=== PATIENT | female | born 1950 | race Caucasian/White ===

== ENCOUNTER 2017-08-06 11:13 | Outpatient (CLI) ==
--- NOTE | 2017-08-06 12:25 | DI ---
EXAM: Radiographs, chest and right rib HISTORY: Right chest wall pain. COMPARISON: Chest radiograph 02/07/2012. TECHNIQUE: Five views. FINDINGS: Heart size is mildly enlarged. There is no vascular congestion. The lungs are clear with out pleural effusion or pneumothorax. Question old right anterior fifth rib fracture. No acute righ t rib fracture or other acute osseous abnormality is identified. IMPRESSION: No acute abnormality of the chest.
== END 2017-08-06 11:14 | disposition home or self-care (01) ==
LOC: RAD 11:13
PROVIDERS: ATTEND Family Medicine
DX: R07.89 Other chest pain (principal); W19.XXXA Unspecified fall, initial encounter

== ENCOUNTER 2017-11-11 07:10 | Day surgery (SDC) ==
[2017-11-11] MEDS ORDERED: LIDOCAINE 1% 20 ML MDV ID STA (07:36)
[2017-11-11] MEDS ORDERED: LIDOCAINE HCL 2% LUER-JET ONE (08:00)
[2017-11-11] MEDS ORDERED: VERSED ONE (08:00)
[2017-11-11] MEDS ORDERED: DIPRIVAN 20 ML VIAL IVP ONE (08:00)
[2017-11-11] MEDS ORDERED: ZOFRAN 4 MG/2 ML IVP STA (09:01)
--- NOTE | 2017-11-12 09:02 | OP ---
INDICATIONS FOR PROCEDURE: 67-year-old female presents for endoscopy and colonoscopy. She has intermittent dysphagia to solid foods. She is also scheduled for screening colonoscopy with a family history of colon cancer involving a Grandmother. MEDICATIONS: SEE ANESTHESIA NOTES. PROCEDURE: 1. ENDOSCOPY, ESOPHAGEAL BIOPSY, BHUTANESE DILATATION 2. COLONOSCOPY WITH SNARE POLYPECTOMY REPORT: The risks, benefits, alternatives and limitations were discussed in detail with the patient. Informed consent was obtained. After adequate sedation was achieved, the video endoscope was introduced in the posterior pharynx and esophagus under direct vision and easily advanced down to the second portion of the duodenum. I then slowly withdrew. The duodenal mucosa appeared unremarkable as did the duodenal bulb. The antrum and body were relatively unremarkable. The scope was retroflexed to look at the cardia and fundus which was unremarkable. There was a hiatal hernia present. The scope was retroflexed and withdrawn back into the esophagus which was unremarkable. There was about a 3 cm hiatal hernia. At the GE junction there was a circumferential stricture causing mild luminal narrowing. I biopsied the GE junction for histological review. The remaining esophagus appeared unremarkable. I then advanced the scope back down the gastric lumen and placed a guidewire and withdrew the scope. Over the guidewire, I easily advanced a [address] [place] dilator. The patient tolerated the procedure well with stable vital signs and pulse oximetry throughout. The patient's bed was turned. A digital rectal exam revealed good tone no masses. The colonoscope was introduced into the rectum and was advanced under direct visual guidance to the cecum. The cecum was identified by the appendiceal orifice and IC valve. I then slowly withdrew the scope in a circumferential manner examining the mucosa quite carefully. I looked on the proximal and distal side of folds and flexures as best as possible. I was able to retroflex the scope in the right colon as well as the left colon. The colonic mucosa was unremarkable its entire length except for a small 5 to 6 mm sessile polyp in the distal transverse colon. I removed this by snare technique. The polyp was collected. In the sigmoid there was scattered small mouth diverticula. No other abnormalities noted including on retroflex view of the anal rayo. The prep was good. The withdrawal time was 8 minutes and 57 seconds. The patient tolerated the procedure well with stable vital signs and pulse oximetry throughout. IMPRESSION: 1. 3 cm hiatal hernia 2. Distal esophageal strictured dilated as above 3. Small colon polyp removed 4. Sigmoid diverticulosis RECOMMENDATIONS: 1. Strict reflux precautions. 2. I advised her to make sure she cuts and chews her food well. 3. Await esophageal biopsy results to confirm benign nature. 4. Await colon polyp pathology. If there are adenomatous changes, I recommend a surveillance colonoscopy examination again in 5 years. If there is hyperplastic changes then I suggest a screening examination again in 10 years, sooner if there are any signs or symptoms to indicate otherwise. 5. High fiber diet. 6. Will see her back in the office as needed. CC: DR. NAA LEO
[2017-11-12 15:26] VITALS: BP 128/64; TEMP 98.6
== END 2017-11-11 09:39 | disposition home or self-care (01) ==
LOC: SURG 07:10
PROVIDERS: ATTEND Internal Medicine Gastroenterology
DX: Z12.11 Encounter for screening for malignant neoplasm of colon (principal); K63.5 Polyp of colon; K57.30 Diverticulosis of large intestine without perforation or abscess without bleeding; K22.2 Esophageal obstruction; K44.9 Diaphragmatic hernia without obstruction or gangrene; R13.10 Dysphagia, unspecified; Z80.0 Family history of malignant neoplasm of digestive organs

== ENCOUNTER 2017-12-25 10:38 | Outpatient (CLI) ==
--- NOTE | 2017-12-25 11:32 | US ---
EXAM: Thyroid ultrasound. History: Hypothyroidism, neck fullness. Technique: Multiple sonographic images through the thyroid gland were obtained. Color duplex Dopple r was used to interrogate vascular flow. Findings: The right lobe of the thyroid measures 3.5 cm x 1.4 cm x 1.1 cm and demonstrates heterogeneous echote xture with several nodules and the largest being solid measuring 1.4 cm. The thyroid isthmus measures 0.4 cm in thickness. The left lobe of the thyroid measures 3.3 cm x 1.3 cm x 1.1 cm and demonstrates heterogeneous echotex ture without focal nodule identified. The thyroid gland is not hypervascular. No extrathyroidal masses are identified. Impression: Right thyroid nodules. Recommend follow-up ultrasound in 6 months.
== END 2017-12-25 10:39 | disposition home or self-care (01) ==
LOC: RAD 10:38
PROVIDERS: ATTEND Family Medicine
DX: E03.9 Hypothyroidism, unspecified (principal)